=== PATIENT | female | born 1990 | race Caucasian/White ===

== ENCOUNTER → 2024-10-24 15:05 | Outpatient (BNVA) | payer OTHER, SELFPAY | PROVIDERS: Visit Provider Physician Assistant Medical | DX: S60.572A Other superficial bite of hand of left hand, initial encounter (principal); W50.3XXA Accidental bite by another person, initial encounter | CPT/HCPCS: 73130; 99203 ==

== ENCOUNTER → 2024-12-31 13:57 | Outpatient (BNVA) | payer OTHER, SELFPAY | PROVIDERS: Visit Provider Registered Nurse | DX: S00.83XA Contusion of other part of head, initial encounter (principal); S60.572A Other superficial bite of hand of left hand, initial encounter; S60.872A Other superficial bite of left wrist, initial encounter; S60.571A Other superficial bite of hand of right hand, initial encounter; Y04.1XXA Assault by human bite, initial encounter; H02.401 Unspecified ptosis of right eyelid | CPT/HCPCS: 99202 ==

== ENCOUNTER 2024-12-31 14:49 | Emergency (ER) | payer OTHER, SELFPAY ==
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
[2024-12-31 15:06] VITALS: BP 125/87; PULSE 91; RESP 14; TEMP 36.8; O2SAT 98; BMI 49.9
[2024-12-31] MEDS: Diphth,Pertus(ACell),Tet Adult 0.5 ML SYRINGE IM (16:21)
[2024-12-31 16:32] VITALS: BP 125/87; PULSE 91; RESP 14; TEMP 36.8; O2SAT 98
== END 2024-12-31 16:33 | disposition home or self-care (01) ==
LOC: HO.ED 16:22
PROVIDERS: Emergency Provider Emergency Medicine; PCP Nurse Practitioner Family
DX: S61.459A Open bite of unspecified hand, initial encounter (principal); Y04.1XXA Assault by human bite, initial encounter; S00.93XA Contusion of unspecified part of head, initial encounter; Y04.2XXA Assault by strike against or bumped into by another person, initial encounter; Y93.9 Activity, unspecified; Y92.219 Unspecified school as the place of occurrence of the external cause; Y99.0 Civilian activity done for income or pay; Z23 Encounter for immunization
CPT/HCPCS: 70450; 73110; 73130; 90471; 90715; 99282; 99284

== ENCOUNTER → 2024-12-31 15:10 | Outpatient (BNV) | payer OTHER, SELFPAY | PROVIDERS: PCP Nurse Practitioner Family; Visit Provider Radiology Diagnostic Radiology | DX: S00.93XA Contusion of unspecified part of head, initial encounter (principal) | CPT/HCPCS: 70450; 73110; 73130 ==